=== PATIENT | female | born 1950 | race Caucasian/White ===

== ENCOUNTER 2018-06-05 16:41 | Emergency (ER) | payer OTHER ==
[~2018-06-05] VITALS: Ht 167.6 cm; Wt 47.6 kg
[2018-06-05 16:54] VITALS: Ht 167.6 cm; Wt 47.6 kg
[2018-06-05] MEDS ORDERED: ACETAMINOPHEN 500 MG TAB PO STA (18:40)
[2018-06-05] MEDS ORDERED: ACET500C5 PO (19:33)
--- NOTE | 2018-06-05 19:37 | ERD ---
ER Documentation Chief Complaint Chief Complaint Complains of right shoulder pain HPI 68-year-old female presents with right shoulder pain after awkward movement in the last day. She denies any fall or significant trauma. She has restricted range of motion due to pain but no weakness. She denies head injury, neck injury, additional symptoms. ROS All systems reviewed and are negative except as per history of present illness. Medications Home Meds Active Scripts Acetaminophen* (Tylophen*) 500 Mg Capsule, 1 CAP PO Q6H PRN for PAIN AND OR ELEVATED TEMP, #20 CAP Prov:NOREEN REGAN MD 06/05/18 Allergies Allergies: Coded Allergies: No Known Allergy (Unverified , 07/05/13) PMhx/Soc History of Surgery: Yes (HERNIA , ) Anesthesia Reaction: No Hx Neurological Disorder: No Hx Respiratory Disorders: No Hx Cardiac Disorders: No Hx Psychiatric Problems: No Hx Miscellaneous Medical Probl: No Hx Alcohol Use: No Hx Substance Use: No Hx Tobacco Use: No FmHx Family History: No diabetes, No coronary disease, No other Physical Exam Vitals Vital Signs Date Temp Pulse Resp B/P (MAP) Pulse Ox O2 O2 Flow FiO2 Time Delivery Rate 06/05/18 98.6 72 16 136/68 99 Room Air 19:44 (90) 06/05/18 98.7 73 20 140/71 98 16:54 (94) Physical Exam Const: No acute distress Head: Atraumatic Eyes: Normal Conjunctiva ENT: Normal External Ears, Nose and Mouth. Neck: Full range of motion. No meningismus. Resp: Clear to auscultation bilaterally Cardio: Regular rate and rhythm, no murmurs Abd: Soft, non tender, non distended. Normal bowel sounds Skin: No petechiae or rashes Back: No midline or flank tenderness Ext: No cyanosis, or edema. Tenderness in the right AC area. No clavicle tenderness. Mild restricted range of motion due to pain but no deficits or weakness appreciated. Neur: Awake and alert Psych: Normal Mood and Affect Results 24 hrs Current Medications Medications Dose Sig/Jermaine Start Time Status Last (Trade) Ordered Route PRN Stop Time Admin Dose Reason Admin 500 mg ONCE STAT 06/05/18 DC 06/05/18 Acetaminophen PO 18:40 19:11 (Tylenol 06/05/18 18:42 Tab) Procedures/MDM X-ray right shoulder 3V Interpreted by me: Bones: No fracture Joints: No dislocation Foreign body: None impression-degenerative changes right shoulder without fracture, dislocation. And right arm sling. Patient is neurovascular intact after sling. Patient will treat with Tylenol, shortness for range of motion, ice, primary care and orthopedic follow-up for pain next week. She is to return to ER for new or worsening symptoms. The patient was stable with no new complaints during the ER course. Clinically, there is no current evidence to suggest meningitis, sepsis, acute abdomen, pneumonia, stroke, acute coronary syndrome, pulmonary embolism, aortic dissection or any other emergent condition appearing to require further evaluation or hospitalization. Patient counseled regarding my diagnostic impression and care plan. Prior to discharge all questions answered. Pt agrees with treatment plan and understands strict return precautions. Pt is instructed to follow up with primary care provider within 24-48 hours. Precautionary instructions provided including instructions to return to the ER if not improving or for any worsening or changing symptoms or concerns. Departure Diagnosis: Primary Impression: Shoulder injury Encounter type: initial encounter Laterality: left Qualified Codes: S49.92XA - Unspecified injury of left shoulder and upper arm, initial encounter Condition: Stable Patient Instructions: Shoulder Sprain Referrals: DOCTOR,NOT ON STAFF (PCP) TOBIN COOK MD Additional Instructions: tiene artritis. no hayfractura. Examines normal hoy. Cheque otro vez con menezes doctor primario en el proximo chaudhary or regresa para mas o nueva simptomas. Va al menezes doctor/ specialista para mas evaluacon en el proximo semana. posiblemente necesita autorizado de menezes doctor primario para specialista. Regresa para fiebre, o mas o nueva simptomas. NOREEN REGAN MD Jun 05, 2018 19:37
[2018-06-05 19:44] VITALS: BP 136/68; PULSE 72; RESP 16
== END 2018-06-05 19:45 | disposition home or self-care (01) ==
LOC: FTE 16:41
DX: S49.92XA Unspecified injury of left shoulder and upper arm, initial encounter (principal); X58.XXXA Exposure to other specified factors, initial encounter; Y92.9 Unspecified place or not applicable